=== PATIENT | female | born 1945 | race Caucasian/White ===

== ENCOUNTER 2018-01-10 08:12 | Day surgery (SDC) | payer MEDICARE ==
[2018-01-10] MEDS ORDERED: Propofol 10 mg/ml Inj (20 ML) ONE (10:18)
--- NOTE | 2018-01-10 10:30 | CP.SDSHP ---
Same Day Surgery H & P - History Proposed Procedure: EGD Pre-Op Diagnosis: SEE NOTES - Previous Medical/Surgical History Cardiac: Hypertension Endocrine/Metabolic: Diabetes, Other - Allergies Allergies: Allergies No Known Allergies Allergy (Verified 01/10/18 08:59) - Physical Exam General Appearance: N Vital Signs: Vital Signs 01/10/18 09:36 Temperature 98.7 F Pulse Rate 75 Respiratory 16 Rate Blood Pressure 156/60 H O2 Sat by Pulse 100 Oximetry Mental Status: Alert & Oriented x3 Lungs: WNL GI: Other - {Optional Preform as Required} Breast: WNL Abdomen: Other Rectal: Other Integument: WNL : WNL Ortho: Other ENT: WNL - Impression Pt. Evaluated Today:Candidate for Anesthesia & Procedure: Yes - Date & Time Time: 10:30 Short Stay Discharge - Short Stay Discharge Admitting Diagnosis/Reason for Visit: DYSPEPSIA Disposition: HOME/ ROUTINE
[2018-01-10] MEDS ORDERED: Sucralfate 1 gm/10 ml Oral Susp UD PO ONE ×2 (10:50→11:15)
[2018-01-10] MEDS ORDERED: raNITIdine HCl 150 mg/10 ml Soln Cup PO ONE (11:00)
[2018-01-10 11:21] VITALS: TEMP 97
[2018-01-10 11:59] VITALS: BP 132/56; PULSE 76; RESP 17; O2SAT 98
== END 2018-01-10 11:55 | disposition home or self-care (01) ==
LOC: C.ENDO 08:12
PROVIDERS: ATTEND Specialist
DX: K21.0 Gastro-esophageal reflux disease with esophagitis (principal); E11.9 Type 2 diabetes mellitus without complications; I10 Essential (primary) hypertension; K29.30 Chronic superficial gastritis without bleeding; K44.9 Diaphragmatic hernia without obstruction or gangrene
CPT/HCPCS: 43239; 82948; 88305; 88342; J2001; J2704; J2765